=== PATIENT | male | born 1945 | race Caucasian/White ===

== ENCOUNTER → 2018-07-29 | Outpatient (CLI) | payer MEDICARE ==
[~2018-07-29] MED LIST: ALBU90OI6 INH; AMLO5 PO; ASPI81EC PO; Aspir 8181 MG PO; BENA20 PO; CEPH500 PO; CHOL10002 PO; Cipro500 MG PO; DOXA4 PO; FISH1000 PO; FLUT.05NI; Flomax0.4 MG PO; GLUC500 PO; Hair, Skin & N1 EACH PO; MULVITMIND PO; ONDA8 PO; OSTERA TABLET1 EACH PO; OXYACE5T PO; SILD50TA PO; VITAMINS
== END | disposition home or self-care (01) ==
LOC: LAB SHORT 14:17 → PLD 14:17
DX: D18.01 Hemangioma of skin and subcutaneous tissue (principal)
CPT/HCPCS: 88305

== ENCOUNTER 2019-05-20 11:06 | Day surgery (SDC) | payer MEDICARE ==
[~2019-05-20] VITALS: Ht 185.4 cm; Wt 79.8 kg
[~2019-05-20 11:06] MED LIST changes: +CHONDROITIN PO; +Flunisolide25 ML
--- NOTE | 2019-05-20 12:44 | NUR ---
History, Chart, Medications and Allergies reviewed before start of procedure. Patient confirms NPO status and agrees with scheduled surgery. Lungs clear T/O to Auscultation. Pre-Op teaching done. Pt verbalizes understanding. Patient reports completing Chlorhexadine shower X2 prior to admission to hospital. Patient States Post-Procedure ride home has been arranged. PATIENT HAS GLASSES ONLY AT ADMIT, WILL PLACE IN PACU. NO DENTURES, CONTACTS, JEWELRY OR HEARING DEVICES PRESENT AT ADMIT. PER DR BARRY AND PATIENT REQUEST, WILL GO HOME WITH LEG BAG. DISCUSSED PLAN WITH PUBLIC ADDRESS TECHNICIAN, SAUL SWENSON, OR REPORT COMPLETED AT BEDSIDE.
--- NOTE | 2019-05-20 17:34 | NUR ---
Patient up to Ambulate independently. Gait steady. Discharge instructions reviewed with patient. Patient verbalizes understanding. Copy given to patient to take home. REPORTS HAS DONE [facility] IN THE PAST. DENIES QUESTIONS OR CONCERNS R/T THIS. ADDITIONAL PATIENT EDUCATION SENT WITH PATIENT REGARDING CATHETER CARE. Discharged via wheelchair to private car for ride home.
== END 2019-05-20 23:16 | disposition home or self-care (01) ==
LOC: ORSCMMR 11:06 → ORD 12:30 → ORSCMMR 23:16
PROVIDERS: Surgery
PROC: 0YU54JZ Supplement Right Inguinal Region with Synthetic Substitute, Percutaneous Endoscopic Approach (ICD-10-PCS; principal; 2019-05-20 12:30)
PROC: 8E0W4CZ Robotic Assisted Procedure of Trunk Region, Percutaneous Endoscopic Approach (ICD-10-PCS; principal; 2019-05-20 12:30)
DX: K40.90 Unilateral inguinal hernia, without obstruction or gangrene, not specified as recurrent (principal); I10 Essential (primary) hypertension; K21.9 Gastro-esophageal reflux disease without esophagitis; J45.909 Unspecified asthma, uncomplicated; Z79.899 Other long term (current) drug therapy; Z79.82 Long term (current) use of aspirin
CPT/HCPCS: 49650; S2900; A9270-GY; C1781; J0461; J0690; J1100; J1885; J2250; J2370; J2405; J2704; J2710; J3010; J7120

== ENCOUNTER → 2019-08-15 | Outpatient (CLI) | payer MEDICARE | END | disposition home or self-care (01) | LOC: PLD 15:21 → LAB SHORT 15:21 | DX: L82.1 Other seborrheic keratosis (principal) | CPT/HCPCS: 88305 ==

== ENCOUNTER → 2019-11-15 | Outpatient (CLI) | payer MEDICARE ==
[~2019-11-15] MED LIST changes: +Benazepril HCl20 MG PO; +CIDAFLEX TABLE1 EAC1 PO; +DOCU100 PO; +MIRALAX17 GM PO; +OMEP20ER PO; +Systane 0.3-0.415 ML BOTHEYES; +TRAM50 PO
== END | disposition home or self-care (01) ==
LOC: LAB SHORT 11:35 → PLD 11:35
DX: D48.5 Neoplasm of uncertain behavior of skin (principal)
CPT/HCPCS: 88305

== ENCOUNTER → 2021-01-31 | Outpatient (CLI) | payer MEDICARE | END | disposition home or self-care (01) | LOC: LAB SHORT 11:52 → LAB 11:52 | DX: C44.01 Basal cell carcinoma of skin of lip (principal); D22.0 Melanocytic nevi of lip; B88.0 Other acariasis | CPT/HCPCS: 88305 ==

== ENCOUNTER 2021-11-07 08:05 | Day surgery (SDC) | payer MEDICARE ==
[~2021-11-07] VITALS: Ht 185.4 cm; Wt 76.8 kg
[~2021-11-07 08:05] MED LIST changes: +Doxycycline150 MG PO; +FINA5 PO
--- NOTE | 2021-11-07 11:34 | NUR ---
RECIEVED REPORT FROM NILTON SMITH RN. PT ABLE TO REPOSITION SELF IN BED, AXOX4, TOLERATING PO FLUIDS AND FOOD AND REQUESTING TO GET DRESSED TO GO HOME.
--- NOTE | 2021-11-07 11:46 | NUR ---
Patient up to Ambulate independently. Gait steady. Discharge instructions reviewed with patient. Patient verbalizes understanding. Copy given to patient to take home. Patient States Post-Procedure ride home has been arranged. Discharged via wheelchair to private car for ride home. ALL BELONGINGS RETURNED TO PATIENT.
== END 2021-11-07 23:15 | disposition home or self-care (01) ==
LOC: ORSCMMR 08:05 → ORD 09:30 → ORSCMMR 23:15
PROVIDERS: Surgery
PROC: 0DJD8ZZ Inspection of Lower Intestinal Tract, Via Natural or Artificial Opening Endoscopic (ICD-10-PCS; principal; 2021-11-07 09:30)
DX: Z12.11 Encounter for screening for malignant neoplasm of colon (principal); Z86.010 Personal history of colon polyps; K57.30 Diverticulosis of large intestine without perforation or abscess without bleeding; K64.8 Other hemorrhoids; G47.33 Obstructive sleep apnea (adult) (pediatric); Z79.82 Long term (current) use of aspirin; Z79.899 Other long term (current) drug therapy
CPT/HCPCS: J2704; J7120

== ENCOUNTER → 2022-05-14 | Outpatient (CLI) | payer MEDICARE | END | disposition home or self-care (01) | LOC: PLD 12:18 → LAB SHORT 12:18 | DX: D10.0 Benign neoplasm of lip (principal) | CPT/HCPCS: 88305 ==

== ENCOUNTER 2023-03-23 09:45 | Day surgery (SDC) | payer MEDICARE ==
[2023-03-23] VITALS (10 sets, daily range): BP systolic 122–159; BP diastolic 82–122
[~2023-03-23] VITALS: Ht 185.4 cm; Wt 78.2 kg
[~2023-03-23 09:45] MED LIST changes: +COENZYME Q-10200 M1 PO; +SYSTANE BALANCE10 ML; +TADA10TA
--- NOTE | 2023-03-23 18:45 | NUR ---
PT STATED 2/10 PAIN L CHEST WALL/SHOULDER. PACEMAKER INSERTION SITE NO REDNESS/BLEEDING/HEMATOMA. DRESSING C/D/I. PT RESTING IN BED, CALL LIGHT WITHIN REACH.
[2023-03-24 04:28] VITALS: BP 126/77
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
[2023-03-24 07:17] VITALS: BP 144/84
--- NOTE | 2023-03-24 08:00 | NUR ---
Received report in room from Raudel ORSARIO. Patiemnt is alert and oriented and is able to communicate his needs. He is independent in bed and calls when getting up for SBA. He is on RA and sats >90%. Left pressure dressing fopr post pacer C/D/I with minimal swelling and slight tenderness at sight which can be expected. He denies any need for pain intervention. Plan is for him to go home this am. He MAEW and understands not top move left arm above nipple line. He has been up to bathroom independnently and watched him get up.
[2023-03-24] MEDS ORDERED: CEPH500 PO (09:01)
--- NOTE | 2023-03-24 10:30 | NUR ---
Patient saw Dr Nicole has been into see patient and hsa discharged him. He tolerated breakfast and all am meds. He has gotten dressed and is ready to leave. Sirte remains the same as earlier assessment. He received written discharge instuctions as well as post pacer insrtructions and has returned understanding of all. He gathered his belongings and was taken to wifes car and went home POV.
== END 2023-03-24 10:24 | disposition home or self-care (01) ==
LOC: MHTC 09:45 → PCU 14:37 → MHTC 03-24 10:24
DX: I49.5 Sick sinus syndrome (principal); I47.1 Supraventricular tachycardia; I49.1 Atrial premature depolarization; Z95.0 Presence of cardiac pacemaker; I10 Essential (primary) hypertension; G47.33 Obstructive sleep apnea (adult) (pediatric); N13.2 Hydronephrosis with renal and ureteral calculous obstruction; G25.81 Restless legs syndrome; N40.0 Benign prostatic hyperplasia without lower urinary tract symptoms
CPT/HCPCS: 33208; 71045; 76937; 94760; 99152; 99153; A9270; C1781; C1785; C1894; C1898; J0690; J1644; J2250; J3010; J7030; J7040